=== PATIENT | female | born 1950 | race African-American/Black ===

== ENCOUNTER 2018-09-05 13:25 | Emergency (ER) | payer BC, OTHER ==
[~2018-09-05] VITALS: Ht 165.1 cm; Wt 80.0 kg
[2018-09-05] MEDS ORDERED: IBUPROFEN 600MG TABLET PO ONE (14:30)
[2018-09-05 14:37] VITALS: BP 133/81
== END 2018-09-05 14:55 | disposition home or self-care (01) ==
LOC: ER 13:25
DX: S29.012A Strain of muscle and tendon of back wall of thorax, initial encounter (principal); E78.00 Pure hypercholesterolemia, unspecified; Z88.5 Allergy status to narcotic agent; X58.XXXA Exposure to other specified factors, initial encounter; Y93.89 Activity, other specified; Y92.018 Other place in single-family (private) house as the place of occurrence of the external cause
CPT/HCPCS: 99283

== ENCOUNTER 2024-05-13 15:02 | Emergency (ER) | payer OTHER ==
[~2024-05-13] VITALS: Ht 167.6 cm; Wt 80.0 kg
[2024-05-13 15:05] VITALS: O2SAT 100
[2024-05-13] MEDS ORDERED: IBUP-2029 MT (20:51)
[2024-05-13] MEDS: IBUPROFEN 600MG TABLET PO ONE (21:07)
[2024-05-13 21:32] VITALS: BP 140/67; PULSE 60; RESP 16; TEMP 36.83628; O2SAT 100
== END 2024-05-13 21:36 | disposition home or self-care (01) ==
LOC: ER 15:02
DX: M54.50 Low back pain, unspecified (principal); E78.00 Pure hypercholesterolemia, unspecified; E11.9 Type 2 diabetes mellitus without complications; Z88.5 Allergy status to narcotic agent
CPT/HCPCS: 99283